=== PATIENT | male | born 2000 | race American Indian/Alaskan Native ===

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

== ENCOUNTER 2018-12-01 10:16 | Emergency (ER) | payer BC, OTHER ==
[2018-12-01 10:34] VITALS: BP 139/82
--- NOTE | 2018-12-01 10:34 | Emergency Department Report ---
Blank Doc - Documentation Documentation: 18 y o male presents to ED with allergic URI sxs states this time of the year his allergies always flares up. VSS [facility] eval
--- NOTE | 2018-12-01 12:20 | Emergency Department Report ---
Minor Respiratory - HPI Chief Complaint: Upper Respiratory Infection Stated Complaint: ASTHMA Time Seen by Provider: 12/01/18 10:31 Minor Respiratory: Yes Rhinorrhea, Yes Able to Tolerate Fluids, Yes Cough, No Sore Throat, No Ear Pain, No Shortness of Breath, No Fever Other History: 18-year-old -[place] male presents to the emergency room for auscultation the Poly-Histine to me". Patient states shortness of breath from pollen. Once it 2 days. Patient is requesting albuterol treatment. Patient reports he does not have any nebs at home or inhalers. ED Review of Systems ROS: Stated complaint: ASTHMA Other details as noted in HPI Comment: All other systems reviewed and negative ENT: congestion (nasal congestion) Respiratory: cough, shortness of breath. denies: wheezing ED Past Medical Hx - Past Medical History Hx Asthma: Yes - Surgical History Past Surgical History?: No - Social History Smoking Status: Never Smoker Substance Use Type: None - Medications Home Medications: Home Medications Medication Instructions Recorded Confirmed Last Taken Type ALBUTEROL Inhaler (OR & NICU) 2 puff IH QID PRN #1 inhalation 12/01/18 Unknown Rx [ProAir HFA Inhaler] ALBUTEROL NEB's [Proventil 0.083% 2.5 mg IH TID PRN #1 box 12/01/18 Unknown Rx NEBS] Cetirizine HCl [All Day Allergy] 10 mg PO QDAY #30 tablet 12/01/18 Unknown Rx Prednisone [predniSONE 10 mg 10 mg PO .TAPER #1 tab.ds.pk 12/01/18 Unknown Rx (6-Day Pack, 21 Tabs)] Minor Respiratory Exam - Exam General: Vital signs noted. No distress. Alert and acting appropriately. HEENT: Yes Moist Mucous Membranes, No Pharyngeal Erythema, No Pharyngeal Exudates, No Rhinorrhea, No Conjuctival Injection, No Frontal Tenderness, No Maxillary Tenderness Ear: Neither TM Bulge, Neither TM Erythema, Neither EAC Pain, Neither EAC Discharge Neck: Yes Supple, No Adenopathy Lungs: Yes Good Air Exchange, No Wheezes, No Ronchi, No Stridor, No Cough, No Labored Respirations, No Retractions, No Use of Accessory Muscles, No Other Abnormal Lung Sounds Heart: Yes Regular, No Murmur Abdomen: Yes Normal Bowel Sounds, No Tenderness, No Peritoneal Signs Skin: No Rash, No Edema Neurologic: Alert and oriented, no deficits. Musculoskeletal: Unremarkable. ED Course Vital Signs 12/01/18 10:31 Temperature 98.2 F Pulse Rate 78 Respiratory 15 Rate Blood Pressure 139/82 O2 Sat by Pulse 99 Oximetry ED Medical Decision Making - Medical Decision Making 18-year-old male comes in for runny nose and nasal congestion cough and wheezing. Patient be discharged home on albuterol since it is a Flonase and to follow-up primary care provider. Critical care attestation.: If time is entered above; I have spent that time in minutes in the direct care of this critically ill patient, excluding procedure time. ED Disposition Clinical Impression: Rhinitis, allergic Disposition: - TO HOME OR SELFCARE Is pt being admited?: No Does the pt Need Aspirin: No Condition: Stable Instructions: Asthma (ED), Allergic Rhinitis (ED) Additional Instructions: Take medication as needed. Follow up with her primary care provider. Prescriptions: Cetirizine HCl [All Day Allergy] 10 mg PO QDAY #30 tablet Prednisone [predniSONE 10 mg (6-Day Pack, 21 Tabs)] 10 mg PO .TAPER #1 tab.ds.pk ALBUTEROL Inhaler (OR & NICU) [ProAir HFA Inhaler] 2 puff IH QID PRN #1 inhalation PRN Reason: Shortness Of Breath ALBUTEROL NEB's [Proventil 0.083% NEBS] 2.5 mg IH TID PRN #1 box PRN Reason: Wheezing Referrals: [facility] MD RAMBO [Primary Care Provider] - 3-5 Days EDINSON YEUNG MD [Staff Physician] - 3-5 Days ROXIE HUYNH MD [Staff Physician] - 3-5 Days
[2018-12-01] MEDS ORDERED: DECADRON IM ONE (12:30)
[2018-12-01] MEDS ORDERED: PROVENTIL IH ONE (12:30)
== END 2018-12-01 13:19 | disposition home or self-care (01) ==
LOC: ED 10:16
DX: J30.9 Allergic rhinitis, unspecified (principal); J45.909 Unspecified asthma, uncomplicated
CPT/HCPCS: 96372; 99282; J1100; 94640